=== PATIENT | male | born 1975 | race Hispanic/Latino ===

== ENCOUNTER 2022-10-10 20:17 | Emergency (ER) | payer OTHER ==
[~2022-10-10] VITALS: Ht 165.1 cm; Wt 59.0 kg
[2022-10-10] MEDS ORDERED: CYCLOBENZAPRINE10 MG PO (22:04)
[2022-10-10 22:25] VITALS: BP 120/89
== END 2022-10-10 22:25 | disposition home or self-care (01) ==
LOC: ED 20:17 → EDBD 20:17 → ED 22:25
DX: K59.00 Constipation, unspecified (principal)
CPT/HCPCS: 36415; 74177; 80053; 81003; 85025; 96375; 96376; 99284-25; J2270; J2405; J7121; Q9967

== ENCOUNTER 2024-12-11 23:09 | Emergency (ER) | payer OTHER ==
[~2024-12-11] VITALS: Ht 165.1 cm; Wt 70.2 kg
[~2024-12-11 23:09] MED LIST: CYCLOBENZAPRINE10 MG PO
--- OUTSIDE RECORDS SUMMARY | 2024-12-11 23:16 | XMS ---
PreManage Notification: [employer] Events No recent Security Events currently on file CRITERIA MET - [facility] - 2 Visits in 30 Days CARE PROVIDERS There are no care providers on record at this time. Jaimee has no Care Guidelines for this patient. Eh VISIT COUNT (12 MO.) [address] [facility] TOTAL 2 NOTE: Visits indicate total known visits. ED/C VISIT TRACKING (12 MO.) 12/11/2024 23:09 [facility] [place] TYPE: Emergency COMPLAINT: - EYE INJURY 12/10/2024 20:56 [facility] [place] TYPE: Emergency DIAGNOSES: - Foreign body sensation, right eye - Injury of conjunctiva and corneal abrasion without foreign body, right eye, initial encounter - fb in eye INPATIENT VISIT TRACKING (12 MO.) No inpatient visits to display in this time frame [email or web address]
[2024-12-11] MEDS ORDERED: KETOROLAC TROMET3 ML (23:29)
[2024-12-11] MEDS ORDERED: ERYTHROMYCIN1 GM (23:29)
[2024-12-11] MEDS ORDERED: TETRACAINE HCL 0.5% 4 ML BTL OD SCH (23:45)
[2024-12-11 23:58] VITALS: BP 122/93
== END 2024-12-12 00:13 | disposition home or self-care (01) ==
LOC: ED 23:09
DX: T15.91XA Foreign body on external eye, part unspecified, right eye, initial encounter (principal); Z88.5 Allergy status to narcotic agent; Z88.1 Allergy status to other antibiotic agents
CPT/HCPCS: 65220; 99283

== ENCOUNTER 2025-03-14 13:02 | Emergency (ER) | payer OTHER ==
[~2025-03-14] VITALS: Ht 165.1 cm; Wt 71.1 kg
[~2025-03-14 13:02] MED LIST changes: +ERYTHROMYCIN1 GM; +KETOROLAC TROMET3 ML
[2025-03-14 13:34] LABS: BLOOD/HGB, URINE NEGATIVE (Negative); KETONE, URINE NEGATIVE (Negative); LEUK ESTERASE, URINE NEGATIVE (negative); NITRITE, URINE NEGATIVE (negative)
[2025-03-14 13:40] LABS: BACTERIA, URINE 4+ /hpf (negative); CASTS, URINE NONE SEEN \\lpf; CRYSTALS, URINE NONE SEEN (0-1+); EPITHELIAL CELLS, URINE 0 /lpf (0-1+); REFLEX CULTURE, URINE Yes (No)
[2025-03-14 14:18] VITALS: BP 111/77
== END 2025-03-14 14:18 | disposition home or self-care (01) ==
LOC: ED 13:02
PROVIDERS: Emergency Medicine
DX: N43.3 Hydrocele, unspecified (principal)
CPT/HCPCS: 76870; 81001; 87088; 99284